=== PATIENT | female | born 1970 | race American Indian/Alaskan Native ===

== ENCOUNTER 2017-01-11 21:24 | Emergency (ER) | payer OTHER ==
[2017-01-11] MEDS ORDERED: COMBIVIR 150-300 mg PO ONE (21:49)
[2017-01-11 22:15] LABS: Basophils % (Auto) 0.5 % (0.0-1.8); Eosinophils % (Auto) 0.6 % (0.0-4.3); Hemoglobin 10.8 gm/dl (10.1-14.3); Mean Corpuscular HGB Conc 33 % (30-34); Mean Corpuscular Volume 79 fl (79-97); Platelet Count 366 K/mm3 (140-440); Red Blood Count 4.18 M/mm3 (3.65-5.03); Red Cell Distribution Width 17.5 % (13.2-15.2); White Blood Count 9.6 K/mm3 (4.5-11.0)
[2017-01-11 22:20] LABS: Mean Corpuscular Hemoglobin 26 pg (28-32)
--- NOTE | 2017-01-11 22:34 | Emergency Department Report ---
HPI - General Time Seen by Provider: 01/11/17 21:48 - HPI HPI: Charge nurse station The patient is a 46-year-old female presenting with a chief complaint of HIV exposure. 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 The subject of the pelvic exam is HIV positive and not currently on therapy. Location: [see above] Duration: today Quality: [see above] Severity: [see above] Modifying factors: [see above] Context: [see above] Mode of transportation: Unknown ED Past Medical Hx - Past Medical History Previous Medical History?: No Additional medical history: Glucose intolerance - Surgical History Additional Surgical History: Lateral tubal ligation, neck biopsy-benign - Family History Family history: no significant - Social History Smoking Status: Former Smoker Substance Use Type: Alcohol (rarely) - Medications Home Medications: Home Medications Medication Instructions Recorded Confirmed Last Taken Type lamiVUDine/ZIDOVUDINE [COMBIVIR 1 each PO Q12H #6 tablet 01/11/17 Unknown Rx 150-300 mg] ED Review of Systems ROS: Stated complaint: EXPOSURE Other details as noted in HPI Comment: All other systems reviewed and negative Constitutional: denies: chills, fever Eyes: denies: eye pain, eye discharge, vision change ENT: denies: ear pain, throat pain Respiratory: denies: cough, shortness of breath, wheezing Cardiovascular: denies: chest pain, palpitations Endocrine: no symptoms reported Gastrointestinal: nausea Genitourinary: denies: urgency, dysuria, discharge Musculoskeletal: denies: back pain, joint swelling, arthralgia Skin: denies: rash, lesions Neurological: denies: headache, weakness, paresthesias Hematological/Lymphatic: denies: easy bleeding, easy bruising Physical Exam - Physical Exam Physical Exam: GENERAL: The patient is well-developed well-nourished female standing not appearing to be in acute distress. [] HEENT: Normocephalic. Atraumatic. Extraocular motions are intact. NECK: Trachea midline CHEST/LUNGS: Clear to auscultation. There is no respiratory distress noted. HEART/CARDIOVASCULAR: Regular. There is no tachycardia. There is no gallop rub or murmur. SKIN: Subacute linear abrasions to right hand. No evidence of erythema or bleeding NEURO: The patient is awake, alert, and oriented. The patient is cooperative. The patient has normal speech and gait. MUSCULOSKELETAL: There is no deformity. ED Medical Decision Making - Lab Data Result diagrams: 01/11/17 21:37 Laboratory Tests 01/11/17 01/11/17 01/11/17 21:37 21:37 21:55 WBC 9.6 RBC 4.18 Hgb 10.8 Hct 33.0 MCV 79 MCH 26 L MCHC 33 RDW 17.5 H Plt Count 366 Lymph % (Auto) 26.2 [place] % (Auto) 10.4 H Eos % (Auto) 0.6 Baso % (Auto) 0.5 Lymph # 2.5 [place] # 1.0 H Eos # 0.1 Baso # 0.0 Seg Neutrophils % 62.3 Seg Neutrophils # 6.0 Sodium 140 Potassium 3.6 Chloride 104.5 Carbon Dioxide 22 Anion Gap 17 BUN 8 Creatinine 0.6 L Estimated GFR > 60 BUN/Creatinine Ratio 13.33 Glucose 132 H Calcium 9.2 Hepatitis A IgM Ab Non-reactive Hep Bs Antigen Non-reactive Hep B Core IgM Ab Non-reactive Hepatitis C Antibody Non-reactive HIV 1&2 Antibody Rapid Non react HIV P24 Antigen Non react - Differential Diagnosis HIV exposure Critical care attestation.: If time is entered above; I have spent that time in minutes in the direct care of this critically ill patient, excluding procedure time. ED Disposition Clinical Impression: HIV exposure Disposition: DISCHARGED TO HOME OR SELFCARE Is pt being admited?: No Does the pt Need Aspirin: No Condition: Stable Additional Instructions: Patient to follow-up with employee health Prescriptions: lamiVUDine/ZIDOVUDINE [COMBIVIR 150-300 mg] 1 each PO Q12H #6 tablet Referrals: PRIMARY CARE, [Primary Care Provider] - 3-5 Days
[2017-01-11 22:35] LABS: Anion Gap 17 mmol/L; BUN/Creatinine Ratio 13.33; Blood Urea Nitrogen 8 mg/dL (7-17); Calcium 9.2 mg/dL (8.4-10.2); Carbon Dioxide 22 mmol/L (22-30); Chloride 104.5 mmol/L (98-107); Glucose 132 mg/dL (65-100); Potassium 3.6 mmol/L (3.6-5.0); Sodium 140 mmol/L (137-145)
[2017-01-11 22:55] LABS: HIV-1 Antigen p24 Non React (Non React)
[2017-01-11 23:00] LABS: HIVR-1/2 Ab Non React (Non React)
[2017-01-11 23:15] LABS: Bilirubin,Urine NEG (Negative); Blood,Urine SM (Negative); Ketones,Urine TR mg/dL (Negative); Leukocyte Esterase,Urine NEG (Negative); Mucus,Urine 3+ /HPF; Nitrite,Urine NEG (Negative); Protein,Urine <15 mg/dL mg/dL (Negative); Urobilinogen,Urine < 2.0 mg/dL (<2.0)
[2017-01-12 01:29] VITALS: BP 130/80
== END 2017-01-12 01:29 | disposition home or self-care (01) ==
LOC: ED 21:24 → EEVIPCON 21:24 → ED 01-12 01:29
DX: Z20.6 Contact with and (suspected) exposure to human immunodeficiency virus [HIV] (principal); Z87.891 Personal history of nicotine dependence
CPT/HCPCS: 36415; 80048; 80074; 81001; 81025; 85025; 87806